=== PATIENT | female | born 1945 | race Asian ===

== ENCOUNTER 2017-11-19 07:30 | Day surgery (SDC) | payer BC ==
[2017-11-19] MEDS ORDERED: SOD CHLORIDE 0.9% 1,000 ML IV (09:30)
[2017-11-19] MEDS ORDERED: CEFAZOLIN 2 GM/50 ML (PMX) 50 ML IVPB (09:30)
[2017-11-19] MEDS ORDERED: MIDAZOLAM 1 MG/ML 2 ML INJ (12:00)
[2017-11-19] MEDS ORDERED: GLYCOPYRROLATE 0.4 MG INJ (12:00)
[2017-11-19] MEDS ORDERED: ROCURONIUM 50 MG INJ (12:00)
[2017-11-19] MEDS ORDERED: CEFAZOLIN 1 GM INJ (12:00)
[2017-11-19] MEDS ORDERED: PROPOFOL 20 ML (12:00)
[2017-11-19] MEDS ORDERED: NEOSTIGMINE 3 MG/3 ML SYRINGE (12:00)
[2017-11-19] MEDS ORDERED: FENTAnyl 50 MCG/ML VIAL ×2 (12:01→12:32)
[2017-11-19] MEDS ORDERED: ONDANSETRON 4 MG INJ (12:01)
[2017-11-19] MEDS ORDERED: DEXAMETHASONE 4 MG/ML 1 ML INJ (12:01)
[2017-11-19] MEDS ORDERED: LABETALOL HCL 20MG INJ (12:10)
[2017-11-19] MEDS ORDERED: SUGAMMADEX SODIUM 200 MG/2 ML VIAL IV (12:11)
[2017-11-19] MEDS ORDERED: BUPIVACAINE 0.25% (MPF) 30 ML INJ (12:17)
[2017-11-19] MEDS: BUPIVACAINE 0.25% (MPF) 30 ML INJ INJ (12:24)
[2017-11-19] MEDS ORDERED: HYDROCODONE/APAP (5/325) TAB PO (13:00)
== END 2017-11-19 14:30 | disposition home or self-care (01) ==
LOC: SDS 07:30
DX: N60.21 Fibroadenosis of right breast (principal); E03.9 Hypothyroidism, unspecified; I10 Essential (primary) hypertension; E11.9 Type 2 diabetes mellitus without complications
CPT/HCPCS: 19301; 82962; 88307; 88342

== ENCOUNTER 2018-01-08 06:09 | Day surgery (SDC) | payer BC ==
[~2018-01-08 06:09] MED LIST: CEFAZOLIN 2 GM/50 ML (PMX) 50 ML IVPB; SOD CHLORIDE 0.9% 1,000 ML IV
[2018-01-08] MEDS ORDERED: ONDANSETRON 4 MG INJ IV (08:00)
[2018-01-08] MEDS ORDERED: EPHEDrine SULFATE 50 MG/5 ML SYG IV (08:00)
[2018-01-08] MEDS ORDERED: MIDAZOLAM 1 MG/ML 2 ML INJ IV (08:00)
[2018-01-08] MEDS ORDERED: FENTAnyl 50 MCG/ML VIAL IV ×3 (08:00)
[2018-01-08] MEDS ORDERED: MEPERIDINE 25 MG INJ IV (08:00)
[2018-01-08] MEDS ORDERED: METOCLOPRAMIDE 10 MG INJ IV (08:00)
[2018-01-08] MEDS ORDERED: LABETALOL HCL 20MG INJ IV (08:00)
[2018-01-08] MEDS ORDERED: hydrALAzine 20 MG INJ IV (08:00)
[2018-01-08] MEDS ORDERED: DIPHENHYDRAMINE 50 MG INJ IV (08:00)
[2018-01-08] MEDS ORDERED: OXYCODONE/ACETAMINOPHEN (5/325) TAB PO ×2 (08:00)
[2018-01-08] MEDS: LIDOCAINE 1% (MPF) 30 ML INJ (08:37)
[2018-01-08] MEDS: BUPIVACAINE 0.25% (MPF) 30 ML INJ (08:37)
[2018-01-08] MEDS ORDERED: IBUPROFEN 800 MG TAB PO (09:00)
[2018-01-08] MEDS ORDERED: FENTAnyl 50 MCG/ML VIAL (09:11)
[2018-01-08] MEDS ORDERED: PROPOFOL 0 ML (09:11)
[2018-01-08] MEDS ORDERED: MIDAZOLAM 1 MG/ML 2 ML INJ (09:11)
[2018-01-08] MEDS ORDERED: CEFAZOLIN 1 GM INJ (09:11)
[2018-01-08] MEDS ORDERED: hydrALAzine 20 MG INJ (09:11)
== END 2018-01-08 11:02 | disposition home or self-care (01) ==
LOC: SDS 06:09
DX: D17.1 Benign lipomatous neoplasm of skin and subcutaneous tissue of trunk (principal); E11.9 Type 2 diabetes mellitus without complications; I10 Essential (primary) hypertension; E78.5 Hyperlipidemia, unspecified
CPT/HCPCS: 14000; 71045; 82962; 88307; 93005